=== PATIENT | male | born 1930 | race Caucasian/White ===

== ENCOUNTER 2018-06-19 05:28 | Inpatient (IN) ==
[2018-06-13 12:27] LABS: Appearance,Urine CLEAR; Bacteria,Urine FEW /hpf (0); Bilirubin,Urine NEG (NEG); Color,Urine YELLOW; Glucose,Urine (UA) NEGATIVE (NEG); Leukocyte Esterase,Urine 75 /uL (NEG); Mucus,Urine FEW /hpf (0); Protein,Urine NEG (NEG); Specific Gravity,Urine 1.004 (1.000-1.035); Urine Blood NEG mg/dL (<0.03); Urine RBC 1 /hpf (0-1); Urine Squamous Epithelial Cell < 1 /hpf (0-4); Urine Transitional Epi Cells < 1 /hpf (0-2); Urine WBC 10 /hpf (0-4); Urobilinogen,Urine NEG (NEG)
[2018-06-13 13:21] LABS: Basophils # (Auto) 0.1 K/mcL (0.0-0.3); Basophils % (Auto) 0.6 % (0.0-2.0); Eosinophils # (Auto) 0.2 K/mcL (0.0-0.7); Eosinophils % (Auto) 1.9 % (0.0-7.0); Granulocytes % (Auto) 74.8 % (38.0-78.0); Lymphocytes # (Auto) 1.3 K/mcL (1.5-4.8); Mean Cell Volume 90.8 fL (80.0-100.0); Monocytes # (Auto) 0.7 K/mcL (0.1-0.9); Monocytes % (Auto) 7.7 % (1.0-12.0); Platelet Count 185 K/mcL (140-440); RBC 5.07 M/mcL (4.50-5.90); Red Cell Distribution Width 14.4 % (11.5-14.5)
[2018-06-13 13:33] LABS: Blood Urea Nitrogen 13 mg/dl (8-23)
[2018-06-13 13:51] LABS: Estimated Average Glucose(eAG) 134 mg/dL; Hemoglobin A1C 6.3 % HGB (4.0-6.0)
[2018-06-19] MEDS ORDERED: PREGABALIN 75 MG CAPSULE PO SCH (06:00)
[2018-06-19] MEDS ORDERED: CELECOXIB 200 MG CAPSULE PO SCH (06:00)
[2018-06-19] MEDS ORDERED: ceFAZolin 1 GM VIAL IV SCH (06:00)
[2018-06-19] MEDS ORDERED: 0.9 % SODIUM CHLORIDE 9 ML, KETOROLAC 30 MG, ROPIVACAINE HCL/PF 49.5 ML, EPINEPHrine 0.... IJ SCH (07:00)
[2018-06-19] MEDS ORDERED: oxyCODONE 10 MG TAB.ER.12H PO SCH (07:00)
[2018-06-19] MEDS ORDERED: IPRATROPIUM/ALBUTEROL 3 ML AMPUL.NEB NEB ONE (08:10)
[2018-06-19 08:44] LABS: Appearance,Urine CLEAR; Bacteria,Urine MOD /hpf (0); Bilirubin,Urine NEG (NEG); Color,Urine YELLOW; Glucose,Urine (UA) NEGATIVE (NEG); Leukocyte Esterase,Urine 500 /uL (NEG); Mucus,Urine FEW /hpf (0); Protein,Urine NEG (NEG); Specific Gravity,Urine 1.017 (1.000-1.035); Urine Blood NEG mg/dL (<0.03); Urine RBC 1 /hpf (0-1); Urine Squamous Epithelial Cell < 1 /hpf (0-4); Urine WBC 37 /hpf (0-4); Urobilinogen,Urine NEG (NEG)
[2018-06-19] MEDS ORDERED: ePHEDrine 50 MG/ML AMPUL IV ONE (09:30)
[2018-06-19] MEDS ORDERED: ROPIVACAINE HCL/PF 20 ML VIAL IJ ONE (09:30)
[2018-06-19] MEDS ORDERED: TRANEXAMIC ACID 1,000 MG/10 ML VIAL IV ONE (09:30)
[2018-06-19] MEDS ORDERED: GLYCOPYRROLATE 0.2 MG/ML VIAL IV ONE (09:30)
[2018-06-19] MEDS ORDERED: ONDANSETRON 4 MG/2 ML VIAL IV ONE (09:30)
[2018-06-19] MEDS ORDERED: EPINEPHrine 1 MG/ML AMPUL IV ONE (09:30)
[2018-06-19] MEDS ORDERED: KETAMINE 100 MG/ML ML IV ONE (09:30)
[2018-06-19] MEDS ORDERED: PROPOFOL 200 MG/20 ML VIAL IV ONE (09:30)
[2018-06-19] MEDS ORDERED: PHENYLEPHRINE 10 MG/ML VIAL IV ONE (09:30)
[2018-06-19] MEDS ORDERED: LIDOCAINE HCL/PF 100 MG/5 ML SYRINGE IV ONE (09:30)
[2018-06-19] MEDS ORDERED: MIDAZOLAM 5 MG/5 ML VIAL IV ONE (09:30)
[2018-06-19] MEDS ORDERED: DEXAMETHASONE 10 MG/ML VIAL IV ONE (09:30)
[2018-06-19] MEDS ORDERED: GENTAMICIN SULFATE 800 MG/20 ML VIAL IR ONE (10:01)
[2018-06-19] MEDS ORDERED: LACTATED RINGERS 250 ML IV PRN (10:57)
[2018-06-19] MEDS ORDERED: IPRATROPIUM/ALBUTEROL 3 ML AMPUL.NEB NEB PRN (10:57)
[2018-06-19] MEDS ORDERED: fentaNYL 100 MCG/2 ML VIAL IV PRN (10:57)
[2018-06-19] MEDS ORDERED: ONDANSETRON 4 MG/2 ML VIAL IV PRN ×2 (10:57→11:08)
[2018-06-19] MEDS ORDERED: BENZOCAINE/MENTHOL 1 LOZENGE PO PRN ×2 (10:57→11:08)
[2018-06-19] MEDS ORDERED: METHOCARBAMOL 1,000 MG/10 ML VIAL IV PRN (10:57)
[2018-06-19] MEDS ORDERED: FLUMAZENIL 0.1 MG/ML ML IV PRN (10:57)
[2018-06-19] MEDS ORDERED: ACETAMINOPHEN 1,000 MG/100 ML BOTTLE IV ONE (10:57)
[2018-06-19] MEDS ORDERED: NALOXONE HCL 0.4 MG/ML VIAL IV PRN (10:57)
[2018-06-19] MEDS ORDERED: LACTATED RINGERS 1,000 ML IV SCH (11:00)
[2018-06-19] MEDS ORDERED: MAGNESIUM HYDROXIDE 30 ML ORAL.SUSP PO PRN (11:08)
[2018-06-19] MEDS ORDERED: FLEETS ADULT ENEMA PR PRN (11:08)
[2018-06-19] MEDS ORDERED: TRANEXAMIC ACID 1,000 MG/10 ML VIAL IV SCH (11:08)
[2018-06-19] MEDS ORDERED: BISACODYL 10 MG SUPP.RECT PR PRN (11:08)
[2018-06-19] MEDS ORDERED: POLYETHYLENE GLYCOL 3350 17 GM PACKET PO PRN (11:08)
[2018-06-19] MEDS ORDERED: HYDROCODONE/APAP 7.5/325MG TABLET PO PRN (11:08)
--- NOTE | 2018-06-19 11:08 | Brief Operative Note ---
Date of procedure: 06/19/18 Pre-op diagnosis: Left knee severe DJD Post-op diagnosis: same Procedure: Left robotic assisted total knee arthroplasty Grafts/Implants: Yes ([place] Triathlon CR 5 femur, 5 tibia, 11mm insert, 36 patella) Anesthesia: spinal, GLMA Findings: arthritis Complications: none Surgeon: Micky Patel Auto Rental Clerk: Suman Tinoco Estimated blood loss (cc): 30 Specimens Removed/Pathology: none sent Condition: stable Disposition: PACU
[2018-06-19] MEDS ORDERED: ALBUTEROL SULFATE 1 PUFF INHALER INH PRN (11:11)
[2018-06-19] MEDS ORDERED: KETOROLAC 15 MG/ML VIAL IV SCH (12:00)
--- NOTE | 2018-06-19 12:19 | XRay Report ---
HISTORY: Postop knee replacement FINDINGS: There is a well-positioned left total knee prosthesis. There is no fracture. There is a large amount of gas around the knee due to the surgical procedure. IMPRESSION: Well-positioned left knee prosthesis Interpreted and Authenticated by: Dash Nava 06/19/18
[2018-06-19] MEDS: 0.9 % SODIUM CHLORIDE 10 ML SYRINGE IV SCH ×2 (13:05→21:33)
[2018-06-19] MEDS: KETOROLAC 30 MG/ML VIAL IV SCH ×2 (13:59→21:26)
[2018-06-19] MEDS: 0.9 % SODIUM CHLORIDE 1,000 ML IV SCH ×2 (13:59→21:28)
[2018-06-19] MEDS: ceFAZolin 1 GM VIAL IV SCH (16:41)
[2018-06-19] MEDS: FAMOTIDINE 20 MG TABLET PO SCH (16:41)
--- NOTE | 2018-06-19 16:56 | Operative Note ---
DATE OF OPERATION: 06/19/2018 PREOPERATIVE DIAGNOSIS: Left knee severe osteoarthritis. POSTOPERATIVE DIAGNOSIS: Left knee severe ostearthritis. PROCEDURE PERFORMED: Left robotic-assisted total knee arthroplasty placing a size 5 [place] Triathlon cruciate retaining femoral component, size 5 tibial baseplate, an 11 mm X3 tibial insert with a 36 patellar button. SURGEON: Micky Patel M.D. SCREW MACHINE SET UP OPERATOR TOOL: Hirne Tinoco PA-C. ANESTHESIA: Spinal plus general. DRAINS: None. SPECIMENS: Bone cuts which were discarded. BLOOD LOSS: 50 mL. POSTOPERATIVE CONDITION: Stable. INDICATIONS FOR SURGERY: This is an 87-year-old male who has had worsening knee pain. Radiographs showed [id number] arthritis. He had a prior right total knee arthroplasty. FINDINGS AT SURGERY: Advanced full-thickness cartilage loss as well as degenerative meniscal tears. Post-procedure showed satisfactory limb alignment, patellar tracking, and joint stability. PROCEDURE IN DETAIL: The patient had been seen preoperatively and informed consent had been obtained after discussion of risks and benefits of surgery. Risks including, but not limited to, bleeding, possibly requiring transfusion; infection, possibly requiring implant removal and prolonged IV antibiotics; injury to nerves, blood vessels, other surrounding structures; anesthetic risks; incomplete or no resolution of symptoms; stiffness; swelling; pain; DVT and pulmonary embolus risks; and the possibility of needing further revision joint surgery. He understood these risks and wished to proceed. Correct operative site was marked and then patient was given spinal anesthesia and taken to the operating room and LMA general given. The left lower extremity was then carefully prepped and draped in normal sterile fashion, and a time-out was performed verifying patient name, operative site, and plan. Esmarch was used to exsanguinate the extremity and tourniquet was inflated. Midline incision was made with a scalpel through skin and subcutaneous tissue. Irrisept was irrigated and then a medial parapatellar arthrotomy made. Subperiosteal exposure was done of the anterior medial tibia and then deep release of the MCL was done and irrigated Irrisept. Two stab incisions were made over the femur and two over the tibia and bicortical pins placed and the arrays were connected. Femoral and tibial check points were also placed. We then did a hip center of rotation check. Green probe was used to identify the medial and lateral malleolus and then double check our checkpoints. Blue probe was used to do our mapping and then osteophytes were removed, and our balancing was checked in both flexion and extension. He was quite varus and required 3 degrees of tibial varus and 2 degrees of femoral varus to get our gaps balanced at 18 mm. We could not get 17 without not contacting bone medially, so we went ahead and then used the robotic arm to make our bone cuts. Our tibia was then prepared, externally rotating as bone coverage would allow. We did downsize this to fit laterally as he is fairly large medial but fairly small lateral. This was externally rotated as bone coverage would allow laterally and then a boss reamer and keel punch used to prepare and then a keeled tibial trial placed. Femur was elevated and posterior osteophytes removed with a curved osteotome and curet, and then femoral trial was pinned into place and peg holes drilled. A 9 insert was tried and easily snapped into place. However, with flexion there was gapping medially with stress, so we went up to a size 11. This improved stability significantly. We then prepared our patella freehand technique. It was measured, resected to within 1 mm of thickness that would allow for recreation of his normal anatomy. A 36 was chosen which was medialized maximally and holes were drilled. Patellar trial was placed and then a lateral facetectomy performed. The knee was then taken through range of motion and found to be stable with good patellar tracking. The implants were opened. The trial implants were removed. Irrisept was irrigated into the joint and antibiotic cement mixed. After a minute we pulse lavaged with saline and then a CO2 gun was used to clean and dry the cancellous bone surfaces. We cemented the tibia and removed excess cement. We cemented the femur and removed excess cement and then the 11 insert trial was placed. The knee was taken into extension and the patellar button cemented. Checkpoints were removed. Irrisept was irrigated and then the extension was checked. This was under 10 degrees, so we went ahead and removed the femoral and tibial pins. Pain cocktail was injected into the pericapsular and subcutaneous tissues. After cement had fully hardened, we flexed the knee up and did a final inspection and removal of the excess cement. Irrisept was irrigated into the tray and an 11 insert was opened and impacted. After a minute, we pulse lavaged with saline. The knee was placed in 45 degrees of flexion. Interrupted #2 FiberWire [id number] were used around the superior quadrant of the patella, interrupted #1 Vicryl [id number] around the inferior quadrant. Running #1 Vicryl used for patellar tendon and quad tendon and then a final Irrisept irrigation done, after a minute final pulse lavage, and then 2-0 Monocryl subcutaneous and funmilayo for skin. Xeroform and sterile dressing were applied. Tourniquet was released. Patient was awakened, extubated, and transferred to recovery in stable condition. TIM:marilee Job ID: [id number] Doc ID: [id number] Micky Patel MD
[2018-06-19] MEDS ORDERED: TAMSULOSIN 0.4 MG CAPSULE PO SCH (18:00)
[2018-06-19] MEDS: BALSALAZIDE DISODIUM 750 MG PO SCH (19:53)
[2018-06-19] MEDS ORDERED: SENNOSIDES 1 TABLET PO SCH (21:00)
[2018-06-19] MEDS ORDERED: SIMVASTATIN 10 MG TABLET PO SCH (21:00)
[2018-06-19] MEDS: ASPIRIN 325 MG ENTERIC COATED TABLET PO SCH (21:26)
[2018-06-19] MEDS: DOCUSATE SODIUM 100 MG CAPSULE PO SCH (21:26)
[2018-06-20] MEDS: ceFAZolin 1 GM VIAL IV SCH (00:40)
[2018-06-20] MEDS: KETOROLAC 30 MG/ML VIAL IV SCH ×3 (00:41→12:11)
[2018-06-20] MEDS: 0.9 % SODIUM CHLORIDE 10 ML SYRINGE IV SCH (05:37)
[2018-06-20] MEDS: 0.9 % SODIUM CHLORIDE 1,000 ML IV SCH (05:38)
[2018-06-20] MEDS: FAMOTIDINE 20 MG TABLET PO SCH (07:11)
[2018-06-20] MEDS ORDERED: LEVOTHYROXINE 100 MCG TABLET PO SCH (07:30)
--- NOTE | 2018-06-20 07:33 | Discharge Summary ---
Providers - Providers Patient information: Note initiated : 06/20/18 at 7:26 am Service Date, if different from initiated Date: [] Patient: Mike Adams 87 y/o M admitted on 06/19/18 for Left Robotic Total Knee Arthroplasty. Chief Complaint: [] Discharge date: 06/20/18 Hospitalization Hospital course: Pt was admitted for a R Total knee arthroplasty. Pt underwent the procedure on the day of admission. Pt spent one night on the floor prior to discharge for IV pain control, IV pain meds, and PT. Pt will use ASA for DVT prophylaxis. Pt will f/u at [facility] in 2 weeks. Discharge diagnosis: L knee OA Exam - Exam Clean and dry: Yes Weight bearing status: as tolerated Ortho Discharge - TKA - Patient Instructions Diet: Regular Diet Activity: activity as tolerated Total Knee Protocol: For Total Knee: Start ROM ARJUN with stationary bike or rocking chair. Work on gaining full extension of knee. Posterior dislocation precautions provided. Hip abductor strengthening and gait training instructions provided. Apply Cryocuff as instructed. Dressing Care: May shower in 2 days - Follow Up Plan Disposition: Home, Self-Care Prognosis: Good Rehab Potential: Good Overall status at discharge: patient is progressing back to baseline - Orders For Discharge Prescriptions: Aspirin [Ecotrin] 325 mg PO BID #30 tab.ec Hydrocodone/APAP 7.5/325Mg [[place] 7.5-325Mg] 1 - 2 tab PO Q4HP PRN #90 tab PRN Reason: Pain Level 3-6 Nitrofurantoin Macrocrystal [Nitrofurantoin] 100 mg PO BID #10 capsule Pending Studies Resuscitation Status Full Code Diet Regular Diet Start SunJun 19 111 Hydrocodone Bitart/Acetaminophen ([place] 7.5/325mg) 0 tab PO Q4HP PRN PRN Reason: PAIN LEVEL 3-6 Last Admin: 06/19/18 21:27 Dose: 1 tab Documented by: SHELBY Aspirin (Ecotrin) 325 mg PO BID [facility] Last Admin: 06/19/18 21:26 Dose: 325 mg Documented by: OBINSMERVIN Docusate Sodium (Colace) 100 mg PO BID [facility] Last Admin: 06/19/18 21:26 Dose: 100 mg Documented by: VESTANSMERVIN [facility] Last Admin: 06/20/18 07:11 Dose: 20 mg Documented by: Admin: 06/19/18 16:41 Dose: 20 mg Documented by: [facility] Sodium Chloride (Sodium Chloride 0.9%) 1,000 mls @ 100 mls/hr IV .Q10H [facility] Last Admin: 06/20/18 05:38 Dose: Not Given Documented by: Admin: 06/19/18 21:28 Dose: Not Given Documented by: Admin: 06/19/18 13:59 Dose: 100 mls/hr Documented by: [facility] Ketorolac Tromethamine (Toradol) 15 mg IV Q6 [facility] Stop: 06/21/18 06:01 Last Admin: 06/20/18 05:37 Dose: 15 mg Documented by: Admin: 06/20/18 00:41 Dose: 15 mg Documented by: Admin: 06/19/18 21:26 Dose: 15 mg Documented by: Admin: 06/19/18 13:59 Dose: 15 mg Documented by: [facility] Levothyroxine Sodium (Synthroid) 100 mcg PO QAMAC [facility] Last Admin: 06/20/18 07:11 Dose: 100 mcg Documented by: [email or web address] Balsalazide Disodium [Colazal] 750 Mg Capsule 1 dose PO BID [facility] Last Admin: 06/19/18 19:53 Dose: Not Given Documented by: SHELBY Senna (Senokot) 2 tab PO [facility] Last Admin: 06/19/18 21:26 Dose: 2 tab Documented by: SHELBY Simvastatin (Zocor) 10 mg PO [facility] Last Admin: 06/19/18 21:26 Dose: 10 mg Documented by: SHELBY Sodium Chloride (Saline Flush) 10 ml IV Q8 [facility] Last Admin: 06/20/18 05:37 Dose: 10 ml Documented by: Admin: 06/19/18 21:33 Dose: Not Given Documented by: Admin: 06/19/18 13:05 Dose: Not Given Documented by: [facility] Tamsulosin HCl (Flomax) 0.4 mg PO DAILY@1800 [facility] Last Admin: 06/19/18 17:27 Dose: 0.4 mg Documented by: [facility] Shift Summary 06/20/18 04:12 Shift Summary by Tamera Mauro Pt had Left knee done yesterday. Has a history of bilat foot drop, braces in room. Pt was BS at 0200 for 697 and streight cathed for 710. Will bladder scan again at 0530. Pt medicated for pain at HS and has since been rating pain at a 1. Pt pulled IV out. New 20ga placed in left FA. IV is currently SL. Pt is from [facility] unsure if he will be discharging today or not. Will update with verbal report. Initialized on 06/20/18 04:12 - END OF NOTE
[2018-06-20] MEDS: ASPIRIN 325 MG ENTERIC COATED TABLET PO SCH (08:44)
[2018-06-20] MEDS: DOCUSATE SODIUM 100 MG CAPSULE PO SCH (08:45)
[2018-06-20] MEDS ORDERED: METOPROLOL TARTRATE 25 MG TABLET PO SCH (09:00)
[2018-06-20] MEDS ORDERED: CYANOCOBALAMIN (VITAMIN B-12) 500 MCG TABLET PO SCH (09:00)
[2018-06-20] MEDS: BALSALAZIDE DISODIUM 750 MG PO SCH (12:07)
== END 2018-06-20 13:45 | disposition home or self-care (01) | DRG 470 ==
LOC: MEDSUR 05:28
PROVIDERS: ADMIT Orthopaedic Surgery; ATTEND Orthopaedic Surgery